=== PATIENT | male | born 1980 | race Caucasian/White ===

== ENCOUNTER 2024-05-16 08:09 | Outpatient (CLI) | payer BC ==
[2024-05-16 08:51] LABS: #Basophils Less than 0.03 10x3/uL (0.0-0.2); %Basophils 0.4 % (0.0-1.0); %Lymphocytes 31.6 % (21.0-51.0); %Monocytes 8.8 % (0.0-10.0); %Neutrophils 56.2 % (42.0-75.0); Hematocrit 45.8 % (42.0-52.0); Hemoglobin 15.8 g/dL (14.0-18.0); Mean Corpuscular HGB CONC 34.5 g/dL (32.0-36.0); Mean Corpuscular Hemoglobin 31.1 pg (27.0-31.0); Mean Corpuscular Volume 90.2 fL (78.0-98.0); Platelet Count 321 10x3/uL (130-400); Red Blood Cell (RBC) Count 5.08 mill/uL (4.70-6.10)
== END 2024-05-16 08:10 | disposition home or self-care (01) ==
LOC: LABBT 08:09
PROVIDERS: ATTEND Orthopaedic Surgery Hand Surgery
DX: Z01.812 Encounter for preprocedural laboratory examination (principal); G56.03 Carpal tunnel syndrome, bilateral upper limbs; G56.23 Lesion of ulnar nerve, bilateral upper limbs
CPT/HCPCS: 85025

== ENCOUNTER 2024-05-19 06:50 | Day surgery (SDC) | payer BC ==
[2024-05-16 08:26] VITALS: BMI 33.0
[2024-05-19] MEDS ORDERED: CEFAZOLIN 2 GM VIAL ONE (07:29)
[2024-05-19] MEDS ORDERED: Dexamethasone 20 MG/5 ML VIAL ONE (08:19)
[2024-05-19] MEDS ORDERED: PROPOFOL 20 ML ONE (08:19)
[2024-05-19] MEDS ORDERED: fentaNYL 50 mcg/mL 1 mL Vial ONE (08:19)
[2024-05-19] MEDS ORDERED: fentaNYL PF 100 MCG/2 ML SYRINGE ONE (08:19)
[2024-05-19] MEDS ORDERED: Ondansetron PF 4 MG/2 ML Vial ONE ×2 (08:19→11:09)
[2024-05-19] MEDS ORDERED: Lidocaine 1% PF 5 ML VIAL ONE (08:19)
[2024-05-19] MEDS ORDERED: Midazolam HCl 2 mg/2 ml Vial ONE ×2 (08:19)
[2024-05-19] MEDS ORDERED: Lidocaine 2% 6 ML (Jelly) SYR ONE (08:21)
[2024-05-19] MEDS ORDERED: Bupivacaine HCl 0.5%/Epinephrine 1:200,000/PF 30 ml Vial ONE (08:30)
[2024-05-19] MEDS ORDERED: Scopolamine 1 mg/72 hour Patch ONE (08:35)
[2024-05-19] MEDS ORDERED: Bacitracin Zinc Ointment 30 gm TUBE ONE (10:11)
[2024-05-19] MEDS ORDERED: Bupivacaine PF 0.5% 30 ML VIAL ONE (10:23)
[2024-05-19] MEDS ORDERED: Promethazine HCl 25 MG/ML VIAL ONE (11:09)
[2024-05-19] MEDS ORDERED: Ketorolac Tromethamine 30 MG (1 mL) VIAL ONE (11:56)
== END 2024-05-19 12:54 | disposition home or self-care (01) ==
LOC: SDC 06:50
PROVIDERS: ATTEND Orthopaedic Surgery Hand Surgery
PROC: 3E0T3BZ Introduction of Anesthetic Agent into Peripheral Nerves and Plexi, Percutaneous Approach (ICD-10-PCS; principal; 2024-05-19)
PROC: 01N40ZZ Release Ulnar Nerve, Open Approach (ICD-10-PCS; principal; 2024-05-19)
PROC: 01N50ZZ Release Median Nerve, Open Approach (ICD-10-PCS; principal; 2024-05-19)
DX: G56.02 Carpal tunnel syndrome, left upper limb (principal); G56.22 Lesion of ulnar nerve, left upper limb
CPT/HCPCS: A6223; J0665; J1100; J1885; J2250; J2405; J2550; J2704; J3010